=== PATIENT | female | born 1975 | race American Indian/Alaskan Native ===

== ENCOUNTER 2019-02-19 09:20 | Outpatient (CLI) | payer BC ==
--- NOTE | 2019-02-19 13:45 | Ultrasound Report ---
BILATERAL DIGITAL DIAGNOSTIC MAMMOGRAM with CAD and LEFT BREAST ULTRASOUND: 02/19/19 09:20:00 CLINICAL: Left palpable lump. COMPARISON:None. FINDINGS: The breasts are heterogeneously dense, which may obscure small masses.No mass, architectural distortion or suspicious calcifications. No mammographic finding as a palpable marker in the left axilla. Ultrasound of the left axilla at the palpable marker demonstrated an oval slightly irregular hypoechoic lesion of the skin at 1 o'clock 19 cm from nipple. It measures 5 x 4 x 4 mm. A benign intramammary lymph node at 2 o'clock 12 cm from the nipple correlates with a lymph node on the mammogram and measures 9 x 4 x 11 mm. IMPRESSION: A benign sebaceous cyst or epidermal inclusion cyst of the left axilla. Otherwise negative studies. BI-RADS CATEGORY: 2 - - Benign RECOMMENDATION: Clinical followup and routine mammographic screening in one year. COMMENT: 1. Dense breast tissue, i.e., adenosis, fibrocystic changes, etc., may obscure an underlying neoplasm. 2. Approximately 10% of cancers are not detected with mammography. 3. A negative mammography report should not delay biopsy if a clinically suspicious mass is present. COMMENT: Patient follow-up letters are generated by our [employer] application.
== END 2019-02-19 09:21 | disposition home or self-care (01) ==
LOC: SPVWC 09:20
PROVIDERS: ATTEND Clinical Nurse Specialist Adult Health
DX: D24.2 Benign neoplasm of left breast (principal)
CPT/HCPCS: 77066

== ENCOUNTER 2021-05-30 09:41 | Outpatient (CLI) | payer BC ==
--- NOTE | 2021-05-30 12:06 | Mammography Report ---
DIGITAL SCREENING MAMMOGRAM WITH CAD, 05/30/2021 CLINICAL INFORMATION / INDICATION: Routine screening TECHNIQUE: Digital bilateral 2D mammography was obtained in the craniocaudal and mediolateral obliqu e projections. This examination was interpreted with the benefit of Computer-Aided Detection analysis . COMPARISON: 02/19/2019 FINDINGS: Breast Density: There are scattered areas of fibroglandular density. No dominant mass, suspicious calcifications, or architectural distortion in the right breast. In the axillary portion of the left breast at the site of a reported purulent draining area, a fairly superficial ovoid moderately well-defined 2.4 cm density is noted. Not seen previously. Small intram ammary node is again seen on the left. No other changes are seen. IMPRESSION: Density is noted on the left corresponding to the draining lesion reported, undergoing tr eatment for abscess. Follow up recommendation: Ultrasound. This could be performed after completion of antibiotic therapy. BI-RADS Category 0: Incomplete. Needs additional imaging evaluation and/or prior mammograms for stephanie fuller. A "normal" or negative report should not discourage follow up or biopsy of a clinically significant f inding. A written summary of these findings will be mailed to the patient. The patient will be entered into a mammography reporting system which will generate a reminder letter for the patient's next appointmen t at the appropriate interval. The [employer] recommends yearly mammograms starting at age 40 and continuing as l rosalio as a woman is in good health. Breast MRI is recommended for women with an approximate 20-25% or greater lifetime risk of breast cancer, including women with a strong family history of breast or ova [place] cancer or who have been treated for Hodgkin's disease. Signer Name: Catrachito Dlaton MD Signed: 05/30/2021 12:02 PM Workstation Name: [id number]
== END 2021-05-30 09:42 | disposition home or self-care (01) ==
LOC: SPVWC 09:41
PROVIDERS: ATTEND Internal Medicine
DX: Z12.31 Encounter for screening mammogram for malignant neoplasm of breast (principal)
CPT/HCPCS: 77067